=== PATIENT | male | born 1970 ===

== ENCOUNTER 2017-06-18 07:15 | Day surgery (SDC) | payer BC ==
[~2017-06-18 07:15] MED LIST: Lactated Ringers 1,000 ML IV SCH; Lidocaine 1% 4 ML ONE; Lidocaine 1%/Sod Bicarbonate in NS 8.4% 1 ML Syringe IDERM PRN; Midazolam 1 MG/ML 2 ML SDV ONE; Propofol 200 MG/20 ML SDV ONE; Sodium Chloride 0.9% 10 ML Syringe FLUSH PRN; fentaNYL 100 MCG/2 ML SDV ONE
[2017-06-18] MEDS ORDERED: Mupirocin Oint 22 GM Tube ONE (07:27)
[2017-06-18] MEDS ORDERED: Lidocaine 1% with EPINEPHrine 1:100,000 20 ML MDV ONE (07:27)
[2017-06-18] MEDS ORDERED: Bupivacaine 0.5%/EPINEPHrine 1:200,000 50 ML MDV ONE (07:28)
[2017-06-18] MEDS ORDERED: Bacitracin Oint 15 GM Tube ONE (07:34)
--- NOTE | 2017-06-18 07:39 | PCM.PREANE ---
Preanesthetic Assessment - Anesthesia/Transfusion/Family Hx Anesthesia History: Prior Anesthesia Without Reaction Family History of Anesthesia Reaction: No Transfusion History: No Prior Transfusion(s) - Review of Systems General: No Symptoms Pulmonary: No Symptoms Cardiovascular: No Symptoms Gastrointestinal: No Symptoms Neurological: No Symptoms Other: Reports: None - Physical Assessment NPO Status Date: 06/17/17 NPO Status Time: 23:55 Pulse: 55 O2 Sat by Pulse Oximetry: 97 Respiratory Rate: 16 Blood Pressure: 116/78 Temperature: 97 F Height: 5 ft 8 in Weight: 81.3 kg ASA Class: 2 Mental Status: Alert & Oriented x3 Airway Class: Mallampati = 2 Dentition: Reports: Normal Dentition, Broken Tooth/Teeth Thyro-Mental Finger Breadths: 3 Mouth Opening Finger Breadths: 3 ROM/Head Extension: Full Lungs: Clear to Auscultation, Normal Respiratory Effort Cardiovascular: Regular Rate, Regular Rhythm - Allergies Allergies/Adverse Reactions: Allergies Allergy/AdvReac Type Severity Reaction Status Date / Time No Known Allergies Allergy Verified 06/17/17 14:27 - Blood Blood Available: No - Acknowledgements Anesthesia Type Planned: MAC Pt an Appropriate Candidate for the Planned Anesthesia: Yes Alternatives and Risks of Anesthesia Discussed w Pt/Guardian: Yes Pt/Guardian Understands and Agrees with Anesthesia Plan: Yes PreAnesthesia Questionnaire HEENT History: Reports: Impaired Vision, Other (See Below) Other HEENT History: reading glasses Cardiovascular History: Reports: None Respiratory History: Reports: None Gastrointestinal History: Reports: None Genitourinary History: Reports: Other (See Below) Other Genitourinary History: frequency 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 Musculoskeletal History: Reports: None Neurological History: Reports: None Psychiatric History: Reports: None Endocrine/Metabolic History: Reports: None Hematologic History: Reports: None Immunologic History: Reports: None Oncologic (Cancer) History: Reports: None Dermatologic History: Reports: Other (See Below) Other Dermatologic History: penile genital warts - Past Surgical History Head Surgeries/Procedures: Reports: None Cardiovascular Surgical History: Reports: None Respiratory Surgical History: Reports: None GI Surgical History: Reports: Appendectomy Female Surgical History: Reports: None Male Surgical History: Reports: None Neurological Surgical History: Reports: None Musculoskeletal Surgical History: Reports: None Oncologic Surgical History: Reports: None - SUBSTANCE USE Smoking Status *Q: Current Every Day Smoker (35 years- 1ppd) Tobacco Use Within Last Twelve Months: Cigarettes Second Hand Smoke Exposure: Yes Days Per Week of Alcohol Use: 0 Recreational Drug Use History: No - HOME MEDS Home Medications: Home Meds . [No Known Home Meds] 06/17/17 [History] - CURRENT (IN HOUSE) MEDS Current Meds: Current Medications Lactated Ringer's (Ringers, Lactated) 1,000 mls @ 125 mls/hr IV ASDIRECTED DIANA Stop: 06/18/17 23:00 Lidocaine/Sodium Bicarbonate (Buffered Lidocaine 1% In Ns 8.4%) 0.25 ml IDERM ONETIME PRN PRN Reason: Prior to IV Start Stop: 06/18/17 18:00 Sodium Chloride (Saline Flush) 10 ml FLUSH ASDIRECTED PRN PRN Reason: Keep Vein Open Stop: 06/18/17 18:00 Discontinued Medications Bupivacaine HCl/Epinephrine Bitart (Marcaine 0.5%/Epinephrine 1:200,000) Confirm Administered Dose 50 ml .ROUTE .STK-MED ONE Stop: 06/18/17 07:29 Fentanyl (Sublimaze) Confirm Administered Dose 100 mcg .ROUTE .STK-MED ONE Stop: 06/18/17 06:47 Lidocaine HCl (Xylocaine-Mpf 1%) Confirm Administered Dose 4 mls @ as directed .ROUTE .STK-MED ONE Stop: 06/18/17 06:46 Lidocaine/Epinephrine (Xylocaine 1% With Epinephrine 1:100,000) Confirm Administered Dose 20 ml .ROUTE .STK-MED ONE Stop: 06/18/17 07:28 Midazolam HCl (Versed 1 Mg/Ml) Confirm Administered Dose 2 mg .ROUTE .STK-MED ONE Stop: 06/18/17 06:47 Mupirocin (Bactroban Oint) Confirm Administered Dose 22 gm .ROUTE .STK-MED ONE Stop: 06/18/17 07:28 Propofol (Diprivan 20 Ml) Confirm Administered Dose 200 mg .ROUTE .STK-MED ONE Stop: 06/18/17 06:47
[2017-06-18] MEDS ORDERED: Lidocaine 1% 30 ML SDV ONE (08:37)
[2017-06-18] MEDS ORDERED: Bupivacaine 0.5% 30 ML SDV ONE (08:37)
[2017-06-18] MEDS ORDERED: Propofol 200 MG/20 ML SDV ONE (09:06)
[2017-06-18] MEDS ORDERED: Ondansetron 4 MG/2 ML SDV IVPUSH PRN (09:33)
--- NOTE | 2017-06-18 09:34 | PCM48HPAN ---
Post Anesthesia Note - EVALUATION WITHIN 48HRS OF ANESTHETIC Vital Signs in Normal Range: Yes Patient Participated in Evaluation: Yes Respiratory Function Stable: Yes Airway Patent: Yes Cardiovascular Function Stable: Yes Hydration Status Stable: Yes Pain Control Satisfactory: Yes Nausea and Vomiting Control Satisfactory: Yes Mental Status Recovered: Yes Pulse Rate: 59 SaO2: 97 Resp Rate: 16 Temperature: 97.7 F Blood Pressure: 115/82
--- NOTE | 2017-06-18 09:41 | PCM.OPNOTE ---
- General Post-Op/Procedure Note Date of Surgery/Procedure: 06/18/17 Operative Procedure(s): Excision of multiple large penile warts Findings: Large dorsal shaft penile wart approximately 2 x 3 cm in size. 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 The scrotum and penis were prepped with Betadine and then draped sterilely. A penile block was performed with 1% lidocaine without epinephrine. Additional local was placed at the base of each lesion. A 15 blade was used to sequentially elliptically excise all 4 warts. The excision sites were then closed with interrupted 5-0 Vicryl suture. Xeroform and gauze were used for the dressing. Hemostasis was obtained with spot cautery. There were no procedural complications.
== END 2017-06-18 11:00 | disposition home or self-care (01) ==
LOC: JD.SDS 07:15
PROVIDERS: ATTEND Surgery
DX: A63.0 Anogenital (venereal) warts (principal); F17.210 Nicotine dependence, cigarettes, uncomplicated
CPT/HCPCS: 54060; A9270; J2250; J3010; J7120; 00920; J2001; J2704

== ENCOUNTER 2020-12-15 20:46 | Emergency (ER) | payer BC, OTHER ==
[2020-12-15] MEDS ORDERED: Diphtheria,Pertussis(Acell),Tetanus Vaccine 0.5 ML Syringe IM ONE (21:00)
--- NOTE | 2020-12-15 21:05 | EDM.PDOC ---
ED HPI GENERAL MEDICAL PROBLEM - General Chief Complaint: Laceration Stated Complaint: FINGER LAC Time Seen by Provider: 12/15/20 20:55 Source of Information: Reports: Patient, RN Notes Reviewed History Limitations: Reports: No Limitations - History of Present Illness INITIAL COMMENTS - FREE TEXT/NARRATIVE: Patient is a 49-year-old male presenting to the emergency department with complaints of laceration to his left index finger. He reports he was pulling his dash off his car when his finger scraped a clip. He is unsure when his last tetanus vaccination was but states it was likely well over 10 years ago. - Related Data Allergies Allergy/AdvReac Type Severity Reaction Status Date / Time No Known Allergies Allergy Verified 12/15/20 20:58 Home Meds: Home Meds . 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 Musculoskeletal History: Reports: None Neurological History: Reports: None Psychiatric History: Reports: None Endocrine/Metabolic History: Reports: None Hematologic History: Reports: None Immunologic History: Reports: None Oncologic (Cancer) History: Reports: None Dermatologic History: Reports: Other (See Below) Other Dermatologic History: penile genital warts - Past Surgical History Head Surgeries/Procedures: Reports: None Cardiovascular Surgical History: Reports: None Respiratory Surgical History: Reports: None GI Surgical History: Reports: Appendectomy Female Surgical History: Reports: None Male Surgical History: Reports: None Neurological Surgical History: Reports: None Musculoskeletal Surgical History: Reports: None Oncologic Surgical History: Reports: None Social & Family History - Caffeine Use Caffeine Use: Reports: Soda, Tea ED ROS GENERAL - Review of Systems Review Of Systems: Comprehensive ROS is negative, except as noted in HPI. ED EXAM, SKIN/RASH Exam: See Below General Appearance: Alert, WD/WN, No Apparent Distress Respiratory/Chest: No Respiratory Distress, Lungs Clear, Normal Breath Sounds, No Accessory Muscle Use, Chest Non-Tender Cardiovascular: Normal Peripheral Pulses, Regular Rate, Rhythm, No Edema, No Gallop, No JVD, No Murmur, No Rub Skin: Other (1 cm skin avulsion to the dorsal aspect of the PIP joint on the left index finger. Scant active bleeding. Patient has full range of motion and strength to flexion and extension of the digit.) Course - Vital Signs Last Recorded V/S: Last Vital Signs Temp 97.9 F 12/15/20 20:58 Pulse 92 12/15/20 20:58 Resp 15 12/15/20 20:58 BP 159/125 H 12/15/20 20:58 Pulse Ox 97 12/15/20 20:58 - Orders/Labs/Meds Meds: Medications Discontinued Medications Generic Name Dose Route Start Last Admin Trade Name Freq PRN Reason Stop Dose Admin Diphtheria/Tetanus/Acell Pertussis 0.5 ml 12/15/20 21:00 12/15/20 21:28 Diphtheria,Pertussis(Acell),Tetanus Vaccine 0.5 Ml Syringe IM 12/15/20 21:01 0.5 ml .ONCE ONE Administration - Re-Assessments/Exams Free Text/Narrative Re-Assessment/Exam: Patient is a 49-year-old male presenting to the emergency department with complaints of skin avulsion to his left index finger. Patient has full range of motion and strength to flexion extension of the digit. This is not a wound that can be sutured as skin on the surface is completely avulsed. We will clean it with sterile saline and CHG soap. Bacitracin and Band-Aid will be applied. He has agreed to receive a Tdap vaccination today. Discharge instructions as document. Departure - Departure Time of Disposition: 21:10 Disposition: Home, Self-Care 01 Condition: Good Clinical Impression: Avulsion of skin of finger without complication Qualifiers: Encounter type: initial encounter Qualified Code(s): S61.209A - Unspecified open wound of unspecified finger without damage to nail, initial encounter - Discharge Information *PRESCRIPTION DRUG MONITORING PROGRAM REVIEWED*: No *COPY OF PRESCRIPTION DRUG MONITORING REPORT IN PATIENT EDWINA: No Instructions: Skin Tear Referrals: Angel Gonsales PA-C [Primary Care Provider] - Forms: ED Department Discharge Additional Instructions: You were seen in the emergency department today for laceration to your left index finger. On exam, the skin is avulsed, therefore unable to be sutured. Wound has been cleansed. Antibiotic ointment and Band-Aid has been applied. Recommend that you keep the wound clean and dry. Wash it gently twice daily with normal soap and water. Apply antibiotic ointment and keep it covered. Watch for signs of infection including increased redness, swelling, or purulent drainage. If these should occur, you should be reevaluated. Return to ER as needed. Sepsis Event Note (ED) - Focused Exam Vital Signs: Vital Signs Temp Pulse Resp BP Pulse Ox 12/15/20 20:58 97.9 F 92 15 159/125 H 97
== END 2020-12-15 21:32 | disposition home or self-care (01) ==
LOC: JD.ED 20:46
DX: S61.201A Unspecified open wound of left index finger without damage to nail, initial encounter (principal); Z23 Encounter for immunization; W22.8XXA Striking against or struck by other objects, initial encounter
CPT/HCPCS: 90471; 90715; 99282-25